=== PATIENT | female | born 1990 | race African-American/Black ===

== ENCOUNTER 2020-04-25 17:28 | Emergency (ER) | payer MEDICAID ==
[~2020-04-25] VITALS: Ht 172.7 cm; Wt 73.0 kg
[2020-04-25 17:30] VITALS: BP 131/83
[2020-04-25] MEDS ORDERED: ACETAMINOPHEN 325MG TABLET PO ONE (18:15)
[2020-04-25] MEDS ORDERED: ACETAMINOPHEN 500MG TABLET PO SCH (18:30)
== END 2020-04-25 19:25 | disposition home or self-care (01) ==
LOC: ER 17:28
DX: R51 Headache (principal); V49.88XA Car occupant (driver) (passenger) injured in other specified transport accidents, initial encounter; Y93.89 Activity, other specified; Y92.89 Other specified places as the place of occurrence of the external cause; Y99.8 Other external cause status
CPT/HCPCS: 81025; 99282